=== PATIENT | male | born 1955 | race Caucasian/White ===

== ENCOUNTER → 2022-08-15 | Outpatient (CLI) | payer OTHER | END | disposition home or self-care (01) | LOC: LABPAT 12:00 | PROVIDERS: ATTEND Orthopaedic Surgery | DX: Z01.812 Encounter for preprocedural laboratory examination (principal); M17.11 Unilateral primary osteoarthritis, right knee; Z22.322 Carrier or suspected carrier of Methicillin resistant Staphylococcus aureus | CPT/HCPCS: 87070 ==

== ENCOUNTER → 2022-09-27 | Outpatient (CLI) | payer OTHER ==
--- NOTE | 2022-09-27 12:08 | MR ---
EXAMINATION TYPE: MR brain wo con DATE OF EXAM: 09/27/2022 6:37 AM COMPARISON: None. CLINICAL INDICATION:Male, 67 years old with history of R41.3 OTHER AMNESIA; TECHNIQUE: Multi planar, multi sequence imaging was performed through the brain including: T1, T2, In version recovery, Diffusion weighted imaging, and gradient echo imaging. No gadolinium was given. FINDINGS: Mild cerebral atrophy with proportional dilation to the ventricles. The villegas-white junctions, ventric ular system, and cisterns appear unremarkable. Midline structures show no abnormality. Diffusion-weig hted imaging shows no evidence of restricted diffusion. The susceptibility weighted images do not rev eal any evidence for micro-hemorrhage. The bone marrow signal is within normal limits. Paranasal sinuses and mastoid air cells: No significant paranasal sinus disease. Visualized orbits: Orbital contents are intact. IMPRESSION: 1. No evidence of intracranial mass or acute/subacute infarct.
== END | disposition home or self-care (01) ==
LOC: RADMRIMAIN 05:51
PROVIDERS: ATTEND Psychiatry & Neurology Neurology
DX: R41.3 Other amnesia (principal)
CPT/HCPCS: 70551

== ENCOUNTER 2022-10-08 09:25 | Day surgery (SDC) | payer OTHER ==
[2022-09-30 15:28] VITALS: BMI 35.4
--- NOTE | 2022-10-07 08:56 | P.HPOR ---
History of Present Illness H&P Date: 10/07/22 Chief Complaint: Right knee pain The patient's a 67-year-old male presents with progressive right knee pain for the past several years worsening recently. He has intermittent clicking along the sharp pains. He notes swelling and stiffness. He does limit his activities. He tried medications without much relief. He notes daily pain. Review of Systems As per HPI Past Medical History Past Medical History: Cancer, Diabetes Mellitus, Hyperlipidemia, Hypertension, Memory Impairment, Osteoarthritis (OA) Additional Past Medical History / Comment(s): SHORT TERM MEMORY IMPAIRMENT. INSOMNIA. HX KIDNEY STONES. HX SKIN CANCER-NOSE AND NECK. HX PROSTATE CANCER. DIABETIC NEUROPATHY BILAT FEET History of Any Multi-Drug Resistant Organisms: None Reported Past Surgical History: Hernia Repair, Orthopedic Surgery, Prostate Surgery Additional Past Surgical History / Comment(s): UMBILICAL HERNIA REPAIR, CANCER REMOVED FROM NECK AND NOSE, RT KNEE SX, RT FOOT SX, KIDNEY STONE SX, PROSTATECTOMY, VASECTOMY, COLONOSCOPY, Past Anesthesia/Blood Transfusion Reactions: No Reported Reaction Smoking Status: Never smoker - Past Family History Father Family Medical History: Cancer Mother Family Medical History: Cancer Brother(s) Family Medical History: Cancer Sister(s) Family Medical History: Cancer Medications and Allergies Home Medications Medication Instructions Recorded Confirmed Type Chlorthalidone 25 mg PO DAILY 09/30/22 09/30/22 History Empagliflozin [Jardiance] 10 mg PO DAILY 09/30/22 09/30/22 History Ibuprofen [Motrin] 600 mg PO BID PRN 09/30/22 09/30/22 History Insulin Glargine,Hum.rec.anlog 10 units SQ HS 09/30/22 09/30/22 History [Lantus Solostar Pen] Simvastatin [Zocor] 10 mg PO HS 09/30/22 09/30/22 History amLODIPine [Norvasc] 10 mg PO DAILY 09/30/22 09/30/22 History lisinopriL 40 mg PO DAILY 09/30/22 09/30/22 History metFORMIN HCL 1,000 mg PO BID 09/30/22 09/30/22 History traZODone HCL [Desyrel] 75 mg PO HS 09/30/22 09/30/22 History Allergies Allergy/AdvReac Type Severity Reaction Status Date / Time No Known Allergies Allergy Verified 09/30/22 15:16 Physical Examination - Knee right Appearance: effusion Effusion grade: grade 1 Valgus alignment in stance: 5 degrees Tenderness with palpation: anterior, lateral Pain: throughout ROM Gait: limping ROM: extension: -10 degrees ROM: flexion: 100 degrees Crepitus with motion: Yes Strength: extension: 5/5 Strength: flexion: 5/5 Meniscal tests: lateral meniscal tests: positive, lateral joint line pain: positive Results The patient is a well-developed well-nourished male approximately 5 foot 9, 250 pounds of endomorphic habitus. HEENT exam is nonfocal, neck is supple. He has painless passive motion of the right hip. Straight leg raise is negative. On examination the right knee, she has genu valgum. He is tender about the lateral joint line. He has an antalgic gait pattern. His distal neurovascular appears intact in the right lower extremity. - Diagnostic results Knee x-ray: image reviewed (3 views of the right knee obtained the office with severe lateral and patellofemoral compartment narrowing) Assessment and Plan Assessment: Right knee severe lateral and patellofemoral compartment osteoarthrosis Plan: I talked to the patient at length regarding his condition along with treatment options. At this point he remains quite symptomatic and limited because of pain related to his right knee has transverse despite previous conservative measures. Aftera thorough discussion he opts to proceed with surgery. We'll plan to proceed with right total knee arthroplasty. We will institute DVT prophylaxis postoperatively. Risks and benefits were discussed at length in layman's terms.
[~2022-10-08 09:25] MED LIST: ACETAMINOPHEN TAB 500 MG TAB PO PRN; MELOXICAM 7.5 MG TAB PO PRN; TRANEXAMIC 1,000 MG/100ML-NACL 1,000 MG in SALINE 1 100ML.BAG IVPB PRN
[2022-10-08] MEDS ORDERED: LACTATED RINGERS 1,000 ML IV SCH (09:47)
[2022-10-08] MEDS ORDERED: MIDAZOLAM 2 MG/2 ML VIAL IV PRN (09:47)
[2022-10-08] MEDS ORDERED: DEXAMETHASONE SOD PHOSPHATE 4 MG/ML 1 ML VIAL IV ONE (09:47)
[2022-10-08] MEDS ORDERED: LIDOCAINE 1% (10MG/ML) FOR IV START INTRADERMA PRN (09:47)
[2022-10-08] MEDS ORDERED: ONDANSETRON 4 MG/2 ML VIAL IVP ONE (09:47)
[2022-10-08 10:10] LABS: Glucose,Whole Blood 123 mg/dL (70-110)
[2022-10-08] MEDS ORDERED: MIDAZOLAM 2 MG/2 ML VIAL IVP ONE (10:38)
[2022-10-08] MEDS ORDERED: MIDAZOLAM 2 MG/2 ML VIAL ONE (11:25)
[2022-10-08] MEDS ORDERED: DEXAMETHASONE SOD PHOSPHATE 4 MG/ML 1 ML VIAL ONE (11:25)
[2022-10-08] MEDS ORDERED: TRANEXAMIC 1,000 MG/100ML-NACL PREMIX BAG ONE (11:25)
[2022-10-08] MEDS ORDERED: PROPOFOL 10 MG/ML 20 ML VIAL IV ONE (11:25)
[2022-10-08] MEDS ORDERED: ROPIVACAINE 5 MG/ML 30 ML VIAL ONE (11:25)
[2022-10-08] MEDS ORDERED: ceFAZolin 1,000 MG in SODIUM CHLORIDE 0.9% 1,000 ML IRRIGATION ONE (11:59)
[2022-10-08] MEDS ORDERED: LACTATED RINGERS 1,000 ML IV ONE (12:51)
[2022-10-08] MEDS ORDERED: NALOXONE 0.4 MG/ML 1 ML VIAL IV PRN (13:02)
[2022-10-08] MEDS ORDERED: HYDROcodone/APAP 5-325MG 1 EACH TAB PO PRN (13:02)
[2022-10-08] MEDS ORDERED: HYDROmorphone 0.5 MG/0.5 ML SYRINGE IVP PRN ×2 (13:02)
[2022-10-08] MEDS ORDERED: MAGNESIUM HYDROXIDE 2,400 MG/30 ML CUP PO PRN (13:02)
--- NOTE | 2022-10-08 13:32 | P.OP ---
Date of Procedure: 10/08/22 Preoperative Diagnosis: Right knee severe tricompartmental osteoarthrosis Postoperative Diagnosis: Same Procedure(s) Performed: Right total knee arthroplastycementedcruciate retaining Implants: Depuy Attune size 7 cemented femoral component, size 7 cemented tibial component, 9 mm articular surface, 38 mm cemented patellar component. This is a cruciate retaining implant. Anesthesia: regional, spinal Surgeon: Osbaldo Aguero Wind Project Manager #1: James Nieto Estimated Blood Loss (ml): 50 Pathology: none sent Condition: stable Indications for Procedure: The patient's a 67-year-old male who presents with progressive right knee pain secondary to osteoarthrosis despite conservative measures. A discussion of the risks and benefits of operative intervention versus continued conservative measures was made with the patient. He opted to proceed with surgery. Operative risks to include infection, neurovascular injury, development of blood clots, fracture, possible component loosening/failure and need for subsequent procedures was discussed. Informed consent was obtained. Operative Findings: As below Description of Procedure: The patient was brought to the operating room, and after induction of spinal anesthesia the right lower extremity was prepped and draped in a normal fashion. The tourniquet was inflated to 270 mmHg. A longitudinal incision extending 3 finger breaths above the superior pole of the patella extending to the medial aspect the tibial tubercle was then made. The skin and subcutaneous tissues were divided sharply. Electrocautery was used for hemostasis. A medial pa rapatellar arthrotomy was then performed. The medial soft tissues to include the superficial and deep portions of the medial collateral ligament as well as the medial hamstring tendons were elevated subperiosteally. The proximal medial tibia osteophytes were carefully removed. The patella was everted. The knee was flexed. A portion of the retropatellar fat pad was excised sharply. The anterior cruciate ligament was sacrificed. The lateral collateral ligament and popliteus were elevated subperiosteally off the lateral femoral epicondyle to aid in balancing. A starting hole was made in the distal femur 1 cm anterior to the posterior cruciate origin. An intramedullary femoral guide was gently inserted planning on 5 valgus distal cut with 9 mm distal resection. The cutting block was pinned in place. The distal cut was then made. The posterior referencing sizing guide was utilized. 3 of external rotation was built into the system and verified off the trans-epicondylar axis and the posterior condyles. I felt size 7 was most appropriate. The cutting block was pinned in place. The anterior, posterior, and chamfer cuts were then made. The bone fragments were removed. A sulcus cut was then made with the appropriate guide. The trial size 7 femoral component was then placed and was fully seated. There was good anterior to posterior and medial to lateral fit. The distal peg holes were then drilled. The trial component was then removed. Attention was then paid towards preparing the proximal tibia. An extra medullary guide was utilized in line with the tibial shaft and second metatarsal distally. A 7 posterior slope was planned. I planned on 6 mm resection from the medial compartment. The cutting block was pinned in place. The proximal tibial cut was then made. The bone was removed in one fragment. The remnants of the medial and lateral menisci were excised the capsule junction with electrocautery. The tibia sized most appropriately at size 7. The posterior osteophytes off the distal femur were carefully removed with a curved osteotome. The trial tibial and femoral components were placed along with a 9 millimeters articular surface. I was able to obtain full flexion and extension with good stability with varus and valgus stress. After several flexion and extension cycles, the tibial rotation was marked with electrocautery in line with the medial one third of the tibial tubercle. Attention was then paid towards preparing the patella. A patella reamer was utilized taking this down to 14 mm of bone stock. A good flush cut was made. The patella sized most appropriately at 38 millimeters. The peg holes were then drilled. The trial component was placed. The knee was taken through a range of motion. I had good patellofemor al tracking with no hands technique. The trial components were then removed. The tibia was prepared in the appropriate rotation with appropriate drill and keel punch. The flexion and extension gaps were checked and felt to be symmetric. The bony surfaces were prepared with pulsatile lavage and dried. The deep tibial component was then cemented in place and was fully seated. Excess cement was removed. The femoral component was cemented in place and was fully seated. Again excess cement was removed. The trial 9 millimeters surface was then inserted in the knee was put in full extension. The patella component was cemented in place. After the cement had sufficiently hardened, the knee was again taken through a range of motion. Again there was good stability in flexion and extension with varus and valgus stress. The trial articular surface was then removed. The final articular surface was placed and was impacted. Care was taken to avoid any soft tissue interposition. Pulsatile lavage was again utilized. The tourniquet was deflated with approximately 60 minutes total tourniquet time. There was minimal drainage therefore a deep drain was not placed. The medial parapatellar arthrotomy was then closed with #2 Ethibond suture. The subcutaneous tissues were reapproximated interrupted 2-0 Vicryl sutures. The skin was reapproximated with 3-0 subarticular strata fix suture. Skin tape and adhesive was applied. A sterile dressing was applied. The patient was then awoken from sedation and transferred to recovery room in good condition. Blood loss was estimated at 50 milliliters. No complications were incurred. Sponge and needle counts were correct at the end the case. James CRUZ assisted during the major components this case to include exposure, bone resection, and implantation.
[2022-10-08] MEDS ORDERED: ROPIVACAINE 1,100 MG, SODIUM CHLORIDE 0.9% 500 ML 330 ML, EMPTY PAIN BALL 1 EACH MISCELLANE PRN ×2 (13:54)
[2022-10-08 14:31] LABS: Glucose,Whole Blood 112 mg/dL (70-110)
--- NOTE | 2022-10-08 14:35 | XR ---
EXAMINATION TYPE: XR knee limited RT DATE OF EXAM: 10/08/2022 COMPARISON: NONE TECHNIQUE: Two views submitted HISTORY: Post op FINDINGS: There is a prosthetic knee in near anatomic alignment. There is soft tissue edema and soft tissue emphysema. Diffuse osteopenia. IMPRESSION: 1. Postoperative change. Appears in near-anatomic alignment
[2022-10-08] MEDS: HYDROmorphone 0.5 MG/0.5 ML SYRINGE IVP PRN ×2 (15:35→16:27)
--- NOTE | 2022-10-08 15:37 | P.ANPRN ---
Procedure Note - Anesthesia - Nerve Block Performed Right Adductor Canal Infusion Time Out Performed: Yes Date of Procedure: 10/08/22 Procedure Start Time: 10:37 Procedure Stop Time: 10:47 Location of Patient: PreOp Indication: Acute Post-Operative Pain, Requested by Surgeon Sedation Type: Sedate with meaningful contact maintained Preparation: Sterile Prep, Sterile Dressing Position: Supine Catheter: Indwelling Needle Types: Pajunk Needle Gauge: 21 Ultrasound used to visualize needle placement: Yes Ultrasound used to observe medication spread: Yes Blood Aspirated: No Pain Paresthesia on Injection Noted: No Resistance on Injection: Normal Image Stored and Saved: Yes Events: Uneventful and Well Tolerated (ropi .5% 20cc plus dexamehasone 4mg)
--- NOTE | 2022-10-08 15:38 | P.ANPRN ---
Procedure Note - Anesthesia - Nerve Block Performed Right Lilick Single Time Out Performed: Yes Date of Procedure: 10/08/22 Procedure Start Time: 10:48 Procedure Stop Time: 10:51 Location of Patient: PreOp Indication: Acute Post-Operative Pain, Requested by Surgeon Sedation Type: Sedate with meaningful contact maintained Preparation: Sterile Prep Position: Supine Needle Types: Pajunk Needle Gauge: 21 Ultrasound used to visualize needle placement: Yes Ultrasound used to observe medication spread: Yes Blood Aspirated: No Pain Paresthesia on Injection Noted: No Resistance on Injection: Normal Image Stored and Saved: Yes Events: Uneventful and Well Tolerated (ropi .5% 20cc plus dexamethasone 4mg)
[2022-10-08] MEDS: HYDROcodone/APAP 7.5-325MG 1 EACH TAB PO PRN (20:48)
[2022-10-08] MEDS ORDERED: SENNOSIDES-DOCUSATE SODIUM 1 EACH TAB PO SCH (21:00)
[2022-10-08 21:03] LABS: Glucose,Whole Blood 203 mg/dL (70-110)
[2022-10-08 22:14] VITALS: RESP 18
--- NOTE | 2022-10-08 23:39 | P.CONS ---
History of Present Illness - Reason for Consult Consult date: 10/08/22 - History of Present Illness The patient is a 67-year-old male with a PMH of type II DM, hypertension, hyperlipidemia who was admitted for an elective right total knee replacement. The patient underwent the procedure earlier today and was seen postoperatively on the surgical unit. He reported excellent control with pain at the time of interview, rated at a 1 out of 10. He denied any additional complaints. He denied experiencing chest discomfort, shortness of breath, fever, chills, cough, nausea, vomiting, abdominal pain, diarrhea. He reports compliance with his medications at home. Review of systems: Pertinent positives and negatives as discussed in HPI, a complete review of systems was performed and all other systems are negative. Physical examination: Vital signs reviewed General: non toxic, no distress, appears at stated age, obese Derm: no unusual rashes/lesions, warm Head: atraumatic, normocephalic, symmetric Eyes: EOMI, no lid lag, anicteric sclera, pupils equal round reactive to light ENT: Nose and ears atraumatic Neck: No cervical lymphadenopathy, trachea midline, supple Mouth: no lip lesion, mucus membranes moist Cardiovascular: S1S2 reg, no murmur, positive dorsalis pedis pulse bilateral, no edema Lungs: CTA bilateral, no rhonchi, no rales, no accessory muscle use Abdominal: soft, nontender to palpation, no guarding Ext: muscle strength 5 out of 5 in all 4 extremities grossly except right lower extremity postsurgically due to pain, right knee dressings in place no gross muscle atrophy, no contractures, Neuro: CN II-XI grossly intact, no gross focal neuro deficits Psych: Alert, oriented, appropriate affect Assessment: Chronic conditions: Hypertension, hyperlipidemia Status post right total knee arthroplasty Plan: Continue with patient's following home medications -Chlorthalidone 25 mg by mouth daily -Lisinopril 40 mg by mouth daily -Norvasc 10 mg by mouth daily -Zocor 10 mg by mouth daily at bedtime -Trazodone 75 mg po qhs Insulin sliding scale and blood glucose monitoring Defer management of pain control and DVT prophylaxis to primary surgery service Past Medical History Past Medical History: Cancer, Diabetes Mellitus, Hyperlipidemia, Hypertension, Memory Impairment, Osteoarthritis (OA) Additional Past Medical History / Comment(s): SHORT TERM MEMORY IMPAIRMENT. INSOMNIA. HX KIDNEY STONES. HX SKIN CANCER-NOSE AND NECK. HX PROSTATE CANCER. DIABETIC NEUROPATHY BILAT FEET History of Any Multi-Drug Resistant Organisms: None Reported Past Surgical History: Hernia Repair, Orthopedic Surgery, Prostate Surgery Additional Past Surgical History / Comment(s): UMBILICAL HERNIA REPAIR, CANCER REMOVED FROM NECK AND NOSE, RT KNEE SX, RT FOOT SX, KIDNEY STONE SX, PROSTATECTOMY, VASECTOMY, COLONOSCOPY, Past Anesthesia/Blood Transfusion Reactions: No Reported Reaction Past Psychological History: Anxiety Smoking Status: Never smoker Past Alcohol Use History: None Reported Past Drug Use History: None Reported - Past Family History Father Family Medical History: Cancer Mother Family Medical History: Cancer Brother(s) Family Medical History: Cancer Sister(s) Family Medical History: Cancer Medications and Allergies Home Medications Medication Instructions Recorded Confirmed Type Chlorthalidone 25 mg PO DAILY 09/30/22 09/30/22 History Empagliflozin [Jardiance] 10 mg PO DAILY 09/30/22 09/30/22 History Ibuprofen [Motrin] 600 mg PO BID PRN 09/30/22 09/30/22 History Insulin Glargine,Hum.rec.anlog 10 units SQ HS 09/30/22 09/30/22 History [Lantus Solostar Pen] Simvastatin [Zocor] 10 mg PO HS 09/30/22 09/30/22 History amLODIPine [Norvasc] 10 mg PO DAILY 09/30/22 09/30/22 History lisinopriL 40 mg PO DAILY 09/30/22 09/30/22 History metFORMIN HCL 1,000 mg PO BID 09/30/22 09/30/22 History traZODone HCL [Desyrel] 75 mg PO HS 09/30/22 09/30/22 History Allergies Allergy/AdvReac Type Severity Reaction Status Date / Time No Known Allergies Allergy Verified 10/08/22 09:47 Physical Exam Vitals: Vital Signs Temp Pulse Pulse Resp BP Pulse Ox 10/08/22 18:45 98.0 F 84 18 124/74 95 10/08/22 18:14 98.0 F 87 16 133/66 96 10/08/22 16:30 81 16 139/70 95 10/08/22 16:15 77 16 145/83 95 10/08/22 16:00 78 17 120/65 95 10/08/22 15:30 67 19 126/66 10/08/22 15:00 65 17 127/72 97 10/08/22 14:45 72 18 125/63 98 10/08/22 14:30 70 16 125/63 10/08/22 14:15 68 19 116/63 94 L 10/08/22 14:00 69 19 117/62 100 10/08/22 13:45 58 L 17 112/58 98 10/08/22 13:31 97.9 F 68 18 108/56 99 10/08/22 10:43 70 16 112/57 99 10/08/22 09:57 98.2 F 74 16 146/70 100 Intake and Output 10/08/22 10/08/22 10/09/22 14:59 22:59 06:59 Intake Total 1751 Output Total 50 300 Balance 1701 -300 Intake: IV 1751 Output: Urine 300 Estimated Blood Loss 50 Other: Weight 109.9 kg 109.9 kg Results Labs: Abnormal Lab Results - Last 24 Hours (Table) 10/08/22 10/08/22 10/08/22 Range/Units 10:08 14:30 20:57 POC Glucose (mg/dL) 123 H 112 H 203 H (70-110) mg/dL
[2022-10-09] MEDS: HYDROcodone/APAP 7.5-325MG 1 EACH TAB PO PRN ×2 (02:49→08:38)
[2022-10-09 06:02] LABS: Glucose,Whole Blood 197 mg/dL (70-110)
[2022-10-09] MEDS ORDERED: INSULIN ASPART (NovoLOG) 100 UNIT/ML VIAL SQ SCH (07:30)
[2022-10-09 08:20] VITALS: BP 127/72; PULSE 69; TEMP 97.3
[2022-10-09] MEDS ORDERED: amLODIPine 10 MG TAB PO SCH (09:00)
[2022-10-09] MEDS ORDERED: lisinopriL 20 MG TAB PO SCH (09:00)
[2022-10-09] MEDS ORDERED: RIVAROXABAN 10 MG TAB PO SCH (09:00)
[2022-10-09] MEDS ORDERED: CHLORTHALIDONE 25 MG TAB PO SCH (09:00)
--- NOTE | 2022-10-09 09:01 | P.DS ---
Providers Date of admission: 10/08/2022 Expected date of discharge: 10/09/22 Attending physician: Osbaldo Aguero Consults: 10/08/22 13:04 Consult Physician Routine Consulting Provider: Yu Haddad Consult Reason/Comments: Medical Managementms/p right total knee arthroplasty Do you want consulting provider notified?: Yes Primary care physician: [facility] Hospital Course: Date of admission: 10/08/2022 Date of discharge: 10/09/2022 Admission diagnosis: Right knee osteoarthritis Discharge diagnosis: Same Attending physician: Dr. Aguero Surgical procedures: Right total knee arthroplasty Brief history: Patient is a 67-year-old male with a history of O progressive primary right knee osteoarthritis. At this point patient has failed conservative treatment measures and has opted to proceed with a elective right total knee arthroplasty. Hospital course: Details of patient's surgery can be found in operative report. Patient tolerated the procedure well and was subsequently transported to orthopedic floor. Patient's orthopeidc and medical care was provided daily. Patient had daily laboratory tests performed for evaluation of overall blood counts. Patient had daily physical therapy to include strengthening range of motion as well as education with walker ambulation. Patient was treated with Xarelto for their postoperative DVT prophylaxis during their inpatient stay. Patient was noted to have a relatively uneventful postoperative course. Patient reported satisfactory pain control with oral pain medications by postoperative day 1. Patient showed satisfactory progress with physical therapy. Patient moved steadily through the program and had no difficulty meeting the goals by postoperative day 1. Given patient's otherwise satisfactory course and having met physical therapy goals, plan is to discharge patient home with health services on postoperative day 1. Discharge condition/disposition: Patient will be discharged home with health services in stable condition. Discharge medications: Instructions are given on resumption of patient's normal daily medications per primary care recommendation, in addition patient will be prescribed Hudgins; senna; Eliquis 2.5 mg BID x 2 weeks. Discharge instructions: 1. Wound care and infection precautions, keep incision dry and covered while showering, no lotions, creams, moisturizers. No soaking, tubs, pools, hottubs. Do not scrub over the incision. 2. Weight-bear as tolerated with walker / cane until follow-up. 3. Ice and elevate when necessary. Do not exceed 20 minutes per hour with ice pack. 4. Utilize compression sleeve until seen at first follow up appointment. 5. Visiting nursing care. 6. Home physical therapy including home CPM. 7. Pain meds and anticoagulants per prescription. 8. Pain medication has potential to cause constipation. Increase oral fluid and fiber intake. Contact primary care provider if you have not had a bowel movement within 48 hours after discharge 9. No anti-inflammatory medication until discussed at first post operative visit, this including Motrin, Aleve, Mobic, Diclofenac. 10. Follow up in office at 2 weeks postop with Ilya Rodriguez PA-C / James Nieto PA-C 11. Follow up with your primary care doctor 7-10 days after discharge. 12. Contact [facility] with any questions, . Assessment: Right knee osteoarthritis Procedures: Right total knee arthroplasty Patient Condition at Discharge: Good Plan - Discharge Summary Discharge Rx Participant: Yes New Discharge Prescriptions: New Apixaban [Eliquis] 2.5 mg PO BID #60 tab HYDROcodone/APAP 7.5-325MG [Hudgins 7.5-325] 1 - 2 tab PO Q6HR PRN #36 tab PRN Reason: Pain Sennosides/Docusate Sodium [Senna Plus 8.6-50 mg Softgel] 1 each PO DAILY #20 capsule No Action Insulin Glargine,Hum.rec.anlog [Lantus Solostar Pen] 10 units SQ HS metFORMIN HCL 1,000 mg PO BID Chlorthalidone 25 mg PO DAILY traZODone HCL [Desyrel] 75 mg PO HS Simvastatin [Zocor] 10 mg PO HS Ibuprofen [Motrin] 600 mg PO BID PRN PRN Reason: Pain lisinopriL 40 mg PO DAILY amLODIPine [Norvasc] 10 mg PO DAILY Empagliflozin [Jardiance] 10 mg PO DAILY Discharge Medication List Chlorthalidone 25 mg PO DAILY 09/30/22 [History] Empagliflozin [Jardiance] 10 mg PO DAILY 09/30/22 [History] Ibuprofen [Motrin] 600 mg PO BID PRN 09/30/22 [History] Insulin Glargine,Hum.rec.anlog [Lantus Solostar Pen] 10 units SQ HS 09/30/22 [History] Simvastatin [Zocor] 10 mg PO HS 09/30/22 [History] amLODIPine [Norvasc] 10 mg PO DAILY 09/30/22 [History] lisinopriL 40 mg PO DAILY 09/30/22 [History] metFORMIN HCL 1,000 mg PO BID 09/30/22 [History] traZODone HCL [Desyrel] 75 mg PO HS 09/30/22 [History] Apixaban [Eliquis] 2.5 mg PO BID #60 tab 10/09/22 [Rx] HYDROcodone/APAP 7.5-325MG [Hudgins 7.5-325] 1 - 2 tab PO Q6HR PRN #36 tab 10/09/22 [Rx] Sennosides/Docusate Sodium [Senna Plus 8.6-50 mg Softgel] 1 each PO DAILY #20 capsule 10/09/22 [Rx] Follow up Appointment(s)/Referral(s): James Nieto, GAURAV [PHYSICIAN MARKETING OFFICER] - 2 Weeks Patient Instructions/Handouts: Knee Replacement (DC) Activity/Diet/Wound Care/Special Instructions: Orthopedic Discharge Instructions: 1. Wound care and infection precautions, keep incision dry and covered while showering, no lotions, creams, moisturizers. No soaking, pools, hot tubs. Do not scrub over incision. 2. Weight-bear as tolerated with walker / cane until follow-up. 3. Ice and elevate when necessary. Do not exceed 20 minutes per hour with ice pack. 4. Utilize compression sleeve until seen at first follow up appointment. 5. Pain meds and anticoagulants per prescription. 6. Pain medication has potential to cause constipation. Increase oral fluid and fiber intake. Contact primary care provider if you have not had a bowel movement within 48 hours after discharge. 7. No anti-inflammatory medication until discussed at first post operative visit, this including Motrin, Aleve, Mobic, Diclofenac. 8. Follow up in office at 2 weeks postop with Ilya Rodriguez PA-C / James Nieto PA-C 9. Follow up with your primary care doctor 7-10 days after discharge. 10. Contact [facility] with any questions, . Keep incision clean, dry, intact. While showering, cover fusion tape with Saran wrap. Keep fusion tape on until follow-up appointment in office in 2 weeks. Discharge Disposition: HOME WITH HOME HEALTH SERVICES
--- NOTE | 2022-10-09 11:49 | P.PN ---
Subjective Progress Note Date: 10/09/22 Principal diagnosis: Right knee osteoarthritis Patient was seen at bedside this morning lying semirecumbent position with ice over right knee. Dressing is in place over anterior knee. Patient says he is doing well. Patient says he is urinating several times since surgery yesterday. Patient says he has been up walking around the room into the bathroom on his own. Patient says he does have a walker at home. Patient says he is in your home later today. Patient says he has not had bowel movement yet, however, patient says he has been passing gas. Patient says he does have family at home that will help him. Patient is looking forward to working with physical therapy later this morning. Patient denies any other changes. Patient denies chest pain, fever, shortness breath, nausea, vomiting, change in vision, loss of bowel/bladder control. Objective - Vital Signs Vital signs: Vital Signs Temp 97.3 F L 10/09/22 08:00 Pulse 69 10/09/22 08:00 Resp 18 10/09/22 08:00 BP 127/72 10/09/22 08:00 Pulse Ox 94 L 10/09/22 08:00 FiO2 Intake & Output 10/08/22 10/09/22 10/09/22 18:59 06:59 18:59 Intake Total 1751 Output Total 350 Balance 1401 Weight 109.9 kg Intake: IV 1751 Output: Urine 300 Estimated Blood Loss 50 - Exam Right knee: Incision is clean, dry, and intact. The exofin fusion tape is in good condition. There is minimal soft tissue swelling and ecchymosis surrounding the medial and lateral aspects of the incision. Calf is soft, no tenderness with palpation. Plantar flexion, dorsiflexion, EHL, FHL are intact. Sensory exam to light touch throughout the extremity is intact, dorsal pedis pulses 2+. - Labs Labs: Abnormal Lab Results - Last 24 Hours (Table) 10/08/22 10/08/22 10/08/22 Range/Units 10:08 14:30 20:57 POC Glucose (mg/dL) 123 H 112 H 203 H (70-110) mg/dL 10/09/22 Range/Units 06:01 POC Glucose (mg/dL) 197 H (70-110) mg/dL Assessment and Plan Assessment: 1. Right knee osteoarthritis - Postop day 1 status post right total knee arthroplasty Plan: 1. Right knee osteoarthritis - right total knee arthroplasty performed yesterday, 10/08/2022. Patient stable at bedside this morning. Pe nding PT/OT evaluation, plan for discharge home later today with health services. Patient does have a walker at home. Continue pain medication as needed. 2. Appreciate medical management 3. Pain management - [place] 4. DVT prophylaxis - Xarelto in hospital. Going home with eliquis 2.5 mg BID x 2 weeks 5. GI prophylaxis - senna 6. PT/OT - weightbearing as tolerated with walker 7. Encourage incentive spirometer use 8. Discharge planning - home today with health services Time with Patient: Less than 30
[2022-10-09 12:49] LABS: Basophils # (A) 0.04 X 10*3/uL (0.00-0.10); Basophils % (A) 0.2 %; Eosinophils # (A) 0 X 10*3/uL (0.04-0.35); Eosinophils % (A) 0 %; HCT 41.9 % (39.6-50.0); HGB 14.1 d/dL (13.0-17.0); Lymphocytes % (A) 7.7 %; MCHC 33.7 d/dL (32.0-37.0); MCV 89.1 FL (80.0-97.0); Mean Platelet Volume 11.6 FL (9.5-12.2); Monocytes # (A) 1.49 X 10*3/uL (0.20-1.00); Monocytes % (A) 8.9 %; NRBC Per 100 WBC 0 X 10*3/uL (0.00-0.01); Neutrophils # (A) 13.88 X 10*3/uL (1.80-7.70); Neutrophils % (A) 82.6 %; Platelet Count 206 X 10*3/uL (140-440); RDW 12.8 % (11.5-14.5); WBC 16.81 X 10*3/uL (4.50-10.00)
--- NOTE | 2022-10-09 17:57 | P.PN ---
Subjective Progress Note Date: 10/09/22 (delayed charting seen at 1105) Patient is a 67-year-old male with Diabetes, hypertension, and hyperlipidemia who was admitted for an elective right total knee replacement. He tolerated the procedure well without any immediate post-op complications. Patient seen and examined at bedside. His pain is well controlled. He has no complaints. Denies chest pain or shortness of breath. Vital signs reviewed General: nontoxic, no distress, appears at stated age Cardiovascular: S1S2 reg, no murmur, positive posterior tibial pulse bilateral, Lungs: Decreased bs bilateral, no rhonchi, no rales , no accessory muscle use Ext: no gross muscle atrophy, no edema b/l lower extremities, no contractures, dressing over right knee Neuro: CN II-XI grossly intact, no focal neuro deficits Psych: Alert, oriented, appropriate affect Assessment/Plan: 67 yo CM s/p Right KOMAL DM 2 - resume metformin 100 mg BID, Jardiance 10 mg , and lantus 10 units at d ischarge Leukocytosis - repeat CBC in 3 days with results to Dr. Rodriguez HTN -Chlorthalidone 25 mg by mouth daily -Lisinopril 40 mg by mouth daily -Norvasc 10 mg by mouth daily HLD -Zocor 10 mg by mouth daily at bedtime Imaging: None new Data Review: Vitals reviewed in afebrile since admission Heart rate 69, respirations 18, blood pressure 127/72, O2 sat 94% on room air Labs remarkable for white blood cell count 16.8, a.m. fasting glucose 197 Thank you for allowing us to participate in the care of this pleasant patient. Do not hesitate to contact us with questions. Someone can be reached from the [facility] hospitalist group all hours of the day at [phone] or via [email or web address]. This dictation was prepared using [employer] voice recognition software. Though every attempt is made to correct errors during dictation some may still exist. Objective - Vital Signs Vital signs: Vital Signs Temp 97.3 F L 10/09/22 08:00 Pulse 69 10/09/22 08:00 Resp 18 10/09/22 08:00 BP 127/72 10/09/22 08:00 Pulse Ox 94 L 10/09/22 08:00 FiO2 Intake & Output 10/08/22 10/09/22 10/09/22 18:59 06:59 18:59 Intake Total 1751 Output Total 350 300 Balance 1401 -300 Weight 109.9 kg Intake: IV 1751 Output: Urine 300 300 Estimated Blood Loss 50 - Labs CBC & Chem 7: 10/09/22 06:47 Labs: Abnormal Lab Results - Last 24 Hours (Table) 10/08/22 10/09/22 10/09/22 Range/Units 20:57 06:01 06:47 WBC 16.81 H (4.50-10.00) X 10*3/uL Neutrophils # 13.88 H (1.80-7.70) X 10*3/uL Monocytes # 1.49 H (0.20-1.00) X 10*3/uL Eosinophils # 0 L (0.04-0.35) X 10*3/uL POC Glucose (mg/dL) 203 H 197 H (70-110) mg/dL
[2022-10-09] MEDS ORDERED: ATORVASTATIN 10 MG TAB PO SCH (21:00)
[2022-10-09] MEDS ORDERED: traZODone HCL 50 MG TAB PO SCH (21:00)
== END 2022-10-09 14:04 | disposition home health service (06) ==
LOC: OR 09:25 → 4SSUR 13:27 → OR 10-09 14:04
PROVIDERS: ATTEND Orthopaedic Surgery
DX: M17.11 Unilateral primary osteoarthritis, right knee (principal); G89.18 Other acute postprocedural pain; E78.5 Hyperlipidemia, unspecified; I10 Essential (primary) hypertension; E11.40 Type 2 diabetes mellitus with diabetic neuropathy, unspecified; Z90.79 Acquired absence of other genital organ(s); Z79.84 Long term (current) use of oral hypoglycemic drugs; Z79.899 Other long term (current) drug therapy
CPT/HCPCS: 97161; 64999; 64448; 85025; 73560; 27447; C1713 ×2; C1776; C1751; J2250; J1100; J0690 ×3; J2405; J2795; J1170